=== PATIENT | female | born 1965 | race Caucasian/White ===

== ENCOUNTER 2018-01-31 15:55 | Outpatient (CLI) | payer OTHER ==
--- NOTE | 2018-02-01 15:35 | Mammography Report ---
Procedure Date: 01/31/2018 Accession Number: [id number] / [id number] Procedure: TRE - Screening Mammo Dig Bilat CPT Code: FULL RESULT: EXAM: Screening Mammo Dig Bilat DATE: 01/31/2018 4:13 PM CLINICAL HISTORY: 52-year-old for screening TECHNIQUE: Bilateral CC and MLO views were obtained. COMPARISON: Films from [facility] dated 12/10/2016, 08/08/2015, 07/16/2014, 06/07/2013, 05/24/2012, 05/20/2011 FINDINGS: The breasts demonstrate scattered fibroglandular densities bilaterally. Coarse and punctate, typically benign calcifications are present. No suspicious masses, clustered microcalcifications, or regions of architectural distortion are identified. IMPRESSION: Benign findings RECOMMENDATION: Routine annual screening unless otherwise clinically indicated. BIRADS CATEGORY 2: Benign findings STANDARD QUALIFYING STATEMENTS: 1. This examination was reviewed with the aid of Computer-Aided Detection (CAD). 2. A negative or benign imaging report should not delay biopsy if clinically suspicious findings are present. Consider surgical consultation if warrented. More than 5% of cancers are not identified by imaging. 3. Dense breasts may obscure an underlying neoplasm.
== END 2018-01-31 15:56 | disposition home or self-care (01) ==
LOC: DI 15:55
PROVIDERS: ATTEND Family Medicine
DX: Z12.31 Encounter for screening mammogram for malignant neoplasm of breast (principal)
CPT/HCPCS: 77067

== ENCOUNTER 2018-10-01 18:55 | Emergency (ER) | payer OTHER ==
[2018-10-01] MEDS ORDERED: BENZONATATE 100 MG CAPSULE PO STA (20:13)
[2018-10-01] MEDS ORDERED: ACETAMINOPHEN 500 MG TABLET PO STA (20:13)
[2018-10-01] MEDS ORDERED: OSELTAMIVIR 75 MG CAPSULE PO STA (20:13)
[2018-10-01] MEDS ORDERED: NAPROXEN 250 MG TABLET PO STA (20:13)
--- NOTE | 2018-10-01 20:17 | ED Physician Documentation ---
History of Present Illness - Stated complaint Stated Complaint: FEVER/COUGH/BODY ACHES - Chief complaint Chief Complaint: Resp - Additonal information Additional information: 53-year-old female presents the emergency department with 2 days with fever, body aches, nasal congestion, cough and sore throat. The patient reports feeling generally unwell. No reports of respiratory distress or difficulty breathing. No triggering factors. No relieving factors. No other associated symptoms Review of Systems Constitutional: reports: Fever, Chills, Myalgias, Fatigue Eyes: denies: Discharge Ears: denies: Ear pain Nose: reports: Rhinorrhea / runny nose, Congestion Throat: reports: Sore throat Cardiac: denies: Chest pain / pressure Respiratory: reports: Cough GI: denies: Abdominal Pain : denies: Dysuria Skin: denies: Rash Musculoskeletal: denies: Neck pain Neurologic: denies: Generalized weakness Immunocompromised: denies: Chemotherapy PD PAST MEDICAL HISTORY - Present Medications Home Medications: Ambulatory Orders Medication Instructions Recorded Confirmed Benzonatate [Tessalon Perle] 100 mg PO TID PRN #30 capsule 10/01/18 Naproxen 500 mg PO BID PRN #60 tablet 10/01/18 Oseltamivir [Tamiflu] 75 mg PO BID #9 capsule 10/01/18 - Allergies Allergies/Adverse Reactions: Allergies Allergy/AdvReac Type Severity Reaction Status Date / Time No Known Drug Allergies Allergy Verified 10/01/18 19:05 - Social History Does the pt smoke?: No Smoking Status: Never smoker Does the pt have substance abuse?: No PD ED PE NORMAL - General General: Alert and oriented X 3, No acute distress - HEENT HEENT: Atraumatic, PERRL, EOMI, Ears normal - Neck Neck: Supple, no meningeal sign - Cardiac Cardiac: RRR (Tachycardia, most likely secondary to the acute viral process), Strong equal pulses - Respiratory Respiratory: No respiratory distress, Clear bilaterally - Derm Derm: Normal color - Extremities Extremities: No deformity - Neuro Neuro: Alert and oriented X 3, Normal speech - Psych Psych: Normal affect Results - Vitals Vitals: Vital Signs - 24 hr 10/01/18 19:02 Temperature 38.8 C H Heart Rate 114 H Respiratory 18 Rate Blood Pressure 143/92 H O2 Saturation 99 Oxygen O2 Source Room air PD MEDICAL DECISION MAKING - ED course ED course: 53-year-old female who appears to have an influenza-like illness, the patient has no evidence of a superimposed bacterial infection, there is no clinical evidence of pneumonia, bacterial sinusitis or acute otitis media. Presently the patient appears appropriate for outpatient management with oral therapy. I offered the patient Tamiflu, the patient would like to try this option. The patient will follow up with primary care. The patient will return to the emergency department immediately for any worsening or any concerns Departure - Departure Disposition: 01 Home, Self Care Clinical Impression: Influenza-like illness Condition: Good Instructions: ED Flu Prescriptions: Benzonatate [Tessalon Perle] 100 mg PO TID PRN #30 capsule PRN Reason: Cough Naproxen 500 mg PO BID PRN #60 tablet PRN Reason: Pain Oseltamivir [Tamiflu] 75 mg PO BID #9 capsule Comments: Please follow-up with primary care for recheck and reevaluation Please return to the emergency department for any worsening or any concerns
[2018-10-01 20:23] VITALS: BP 124/76
== END 2018-10-01 20:29 | disposition home or self-care (01) ==
LOC: ED 18:55
DX: J11.1 Influenza due to unidentified influenza virus with other respiratory manifestations (principal)
CPT/HCPCS: 99283; A9270

== ENCOUNTER 2020-08-05 15:24 | Outpatient (CLI) | payer OTHER ==
--- NOTE | 2020-08-06 13:19 | Mammography Report ---
BILATERAL DIGITAL SCREENING MAMMOGRAM 3D/2D: 08/05/2020 CLINICAL: Routine screening. Comparison is made to exams dated: 03/17/2019 mammogram, 01/31/2018 mammogram, 12/10/2016 mammogram, 07/26 mammogram, 07/16/2014 mammogram, and 06/07/2013 mammogram - [facility]. There are scattered fibroglandular elements in both breasts. No significant masses, calcifications, or other findings are seen in either breast. There has been no significant interval change. IMPRESSION: NEGATIVE There is no mammographic evidence of malignancy. A 1 year screening mammogram is recommended. This exam was interpreted at Station ID: [id number]. NOTE: For mammograms, a report in lay terms will be sent to the patient. Approximately 15% of breast malignancies will not be visualized mammographically. In the management of a palpable breast mass, a negative mammogram must not discourage biopsy of a clinically suspicious lesion. Electronically Signed By: Jono Patel M.D., jr/forrest:08/05/2020 16:39:18 ACR BI-RADS Category 1: Negative 3341F PARENCHYMAL PATTERN: (A) - The breast(s) demonstrate(s) scattered fibroglandular densities. BI-RADS CATEGORY: (1) - 1 RECOMMENDATION: (ANNUAL) - Recommend routine annual screening mammography. [id number] 1 year screening LATERALITY: (B)
== END 2020-08-05 15:25 | disposition home or self-care (01) ==
LOC: DI.N 15:24
DX: Z12.31 Encounter for screening mammogram for malignant neoplasm of breast (principal)
CPT/HCPCS: 77067

== ENCOUNTER 2021-08-07 08:20 | Outpatient (CLI) | payer OTHER ==
--- NOTE | 2021-08-08 10:43 | Mammography Report ---
BILATERAL DIGITAL SCREENING MAMMOGRAM 3D/2D: 08/07/2021 CLINICAL: Routine screening. Comparison is made to exams dated: 08/05/2020 mammogram - [facility], 03/17/2019 [place], and 01/31/2018 mammogram - [facility]. There are scattered fibroglandular eleme nts in both breasts. No significant masses, calcifications, or other findings are seen in either breast. There has been no significant interval change. IMPRESSION: NEGATIVE There is no mammographic evidence of malignancy. A 1 year screening mammogram is recommended. This exam was interpreted at Station ID: [id number]. NOTE: For mammograms, a report in lay terms will be sent to the patient. Approximately 15% of breast malignancies will not be visualized mammographically. In the management of a palpable breast mass, a negative mammogram must not discourage biopsy of a clinically suspicious lesion. Electronically Signed By: Nikolai Dixon M.D. [email or web address]:08/07/2021 11:16:32 ACR BI-RADS Category 1: Negative 3341F PARENCHYMAL PATTERN: (A) - The breast(s) demonstrate(s) scattered fibroglandular densities. BI-RADS CATEGORY: (1) - 1 RECOMMENDATION: (ANNUAL) - Recommend routine annual screening mammography. [id number] 1 year screening LATERALITY: (B)
== END 2021-08-07 08:21 | disposition home or self-care (01) ==
LOC: DI.N 08:20
DX: Z12.31 Encounter for screening mammogram for malignant neoplasm of breast (principal)

== ENCOUNTER 2023-05-12 08:00 | Outpatient (CLI) | payer OTHER | END 2023-05-12 23:59 | disposition home or self-care (01) | LOC: LAB 08:00 | PROVIDERS: ATTEND Nurse Practitioner | DX: R30.0 Dysuria (principal) | CPT/HCPCS: 87086 ==

== ENCOUNTER 2023-11-01 14:20 | Outpatient (CLI) | payer OTHER ==
--- NOTE | 2023-11-01 20:48 | DEXA Report ---
PROCEDURE: Dexa Spine and/or Hip INDICATIONS: FAM HIST OF OSTEOPOROSIS TECHNIQUE: Dual energy x-ray absorptiometry (DEXA) was performed in the regions detailed below. COMPARISON: None. FINDINGS: Lumbar Spine: Bone Mineral Density 1.06-year-old g/cm/cm,T score -1.0. Normal Left Femoral Neck: Bone Mineral Density 0.895 g/cm/cm, T score -1.0. Normal Left Total Hip: Bone Mineral Density 1.027 g/cm/cm,T score 0.1. Normal (T score greater or equal to -1.0: NORMAL) (T score from -1.1 to -2.4: OSTEOPENIA) (T score less than or equal to -2.5 to: OSTEOPOROSIS) IMPRESSION: Normal bone mineralization Patients with diagnosis of osteoporosis or osteopenia should have regular bone mineral density assess ment. For those eligible for Medicare, routine testing is allowed once every 2 years. Testing frequ ency can be increased for patients who have rapidly progressing disease or for those who are receivin g medical therapy to restore bone mass. Reviewed by: Flakito Camp MD on 11/01/2023 7:47 PM DAVI Approved by: Flakito Camp MD on 11/01/2023 7:47 PM AKJOSSIE Station ID: [id number]
== END 2023-11-01 14:21 | disposition home or self-care (01) ==
LOC: DI 14:20
PROVIDERS: ATTEND Student in an Organized Health Care Education/Training Program
DX: Z82.62 Family history of osteoporosis (principal)

== ENCOUNTER 2024-01-24 12:35 | Outpatient (CLI) | payer OTHER ==
--- NOTE | 2024-01-24 21:45 | MRI Report ---
Lumbar Spine WO Clinical History: 58 years of age, Female, LOW BACK PAIN. Comparison: No priors available Technique: Multiplanar multisequence lumbar spine MRI without contrast was performed. Findings: Prior surgery: None. Vertebral bodies: Vertebral body heights are maintained. Alignment: Mild straightening of the lumbar spine. Bone marrow: Fibrofatty endplate change at L5-S1. Intervertebral discs: Severe loss of disc height at L5-S1. No significant disc bulge. The conus medullaris is normal in contour, signal intensity, and location. The tip of the conus is at L1. The following axial levels are detailed below: T12-L1: Mild bilateral facet arthropathy. No central canal stenosis. No right neuroforaminal stenosis . No left neuroforaminal stenosis. L1-L2: Mild bilateral facet arthropathy, right greater than left. No central canal stenosis. No right neuroforaminal stenosis. No left neuroforaminal stenosis. L2-L3: Mild bilateral facet arthropathy. No central canal stenosis. No right neuroforaminal stenosis. No left neuroforaminal stenosis. L3-L4: Mild bilateral facet arthropathy. No central canal stenosis. No right neuroforaminal stenosis. Mild left neuroforaminal stenosis. L4-L5: Moderate bilateral facet arthropathy. No central canal stenosis. No right neuroforaminal steno sis. No left neuroforaminal stenosis. L5-S1: No central canal stenosis. Mild bilateral facet arthropathy. No right neuroforaminal stenosis. No left neuroforaminal stenosis. Visualized sacrum and pelvis: Visualized sacrum is intact. IMPRESSION: Multilevel degenerative changes of the lumbar spine, most pronounced at L3-4, where there is mild lef t neuroforaminal stenosis. Reviewed by: Diane Sanchez MD on 01/24/2024 9:44 PM PDT Approved by: Diane Sanchez MD on 01/24/2024 9:44 PM PDT Station ID: [id number]
== END 2024-01-24 12:36 | disposition home or self-care (01) ==
LOC: DI 12:35
PROVIDERS: ATTEND Nurse Practitioner Family
DX: M51.17 Intervertebral disc disorders with radiculopathy, lumbosacral region (principal); M48.061 Spinal stenosis, lumbar region without neurogenic claudication; M47.816 Spondylosis without myelopathy or radiculopathy, lumbar region; M47.817 Spondylosis without myelopathy or radiculopathy, lumbosacral region